=== PATIENT | male | born 1985 | race Caucasian/White ===

== ENCOUNTER 2019-08-18 22:55 | Emergency (ER) | payer MEDICAID ==
[~2019-08-18] VITALS: Ht 180.3 cm; Wt 99.8 kg
--- NOTE | 2019-08-18 23:05 | NUR ---
PT BIBRA C/O HEROIN USE. PT LETHARGIC, UNABLE TO ANSWER QUESTIONS, RR EVEN AND UNLABORED ON RA W/ NAD NOTED. PT CONNECTED TO THE FACING SLITTER AND POX
--- NOTE | 2019-08-19 00:43 | NUR ---
Patient is resting comfortably in bed with eyes closed. Easily aroused. VSS.On constant observation. Will continue to monitor for safety
--- NOTE | 2019-08-19 02:29 | NUR ---
PT ON CONSTANT OBSERVATION. NO ACUTE DISTRESS NOTED. VSS AT THIS TIME.
--- NOTE | 2019-08-19 04:15 | NUR ---
PT ON CONSTANT OBSERVATION. NO ACUTE DISTRESS NOTED. VSS AT THIS TIME.
[2019-08-19 05:55] VITALS: BP 132/76
--- NOTE | 2019-08-19 05:55 | NUR ---
Patient discharged to home in stable condition. Written and verbal after care instructions given. Patient verbalizes understanding of instruction.Pt ambulatory with a steady gait
== END 2019-08-19 05:56 | disposition home or self-care (01) ==
LOC: ER 22:56
DX: F15.10 Other stimulant abuse, uncomplicated (principal)